=== PATIENT | female | born 1990 | race Asian ===

== ENCOUNTER 2017-04-15 12:43 | Outpatient (CLI) | payer BC ==
[2017-04-15] MEDS ORDERED: Iopamidol 300 61% 50 ML VIAL FS ONE (13:47)
--- NOTE | 2017-04-15 15:59 | RAD ---
PROCEDURE: HYSTEROSALPINGOGRAM: INDICATION: Infertility. Last menstrual period 7 days ago. The patient is 0 para 0. The patient has be en trying to conceive x 2 years. FINDINGS: Uterus is slightly deviated to the right. Uterine contour appears normal. No intrauterine filling d efect. Fallopian tubes are patent. Fimbria appear unremarkable. Contrast spill is seen from both f imbria. IMPRESSION: Unremarkable hysterosalpingogram. PROCEDURE NOTE: The procedure was discussed with the patient. The patient was placed in lithotomy position. A steri le speculum was placed. Cervix was cleaned with Betadine. The cervix is sounded to 3 cm. The inter nal os was closed and was difficult to penetrate with the sound. After opening the internal os, the HSG catheter was placed into the uterine cavity. Balloon was inflated. Water-soluble contrast was s lowly injected under fluoroscopic observation. Multiple images were obtained. The balloon was defla el and the lower uterine segment was opacified. There were no problems or complications. POS: [facility]
== END 2017-04-15 12:44 | disposition home or self-care (01) ==
LOC: RAD 12:43
PROVIDERS: ATTEND Obstetrics & Gynecology
DX: N97.1 Female infertility of tubal origin (principal)
CPT/HCPCS: 58340; 74740

== ENCOUNTER 2017-10-22 06:48 | Outpatient (CLI) | payer BC | END 2017-10-22 06:49 | disposition home or self-care (01) | LOC: BICULT 06:48 | PROVIDERS: ATTEND Internal Medicine Gastroenterology | DX: R10.10 Upper abdominal pain, unspecified (principal); R11.2 Nausea with vomiting, unspecified | CPT/HCPCS: 76705 ==

== ENCOUNTER 2018-03-18 12:39 | Inpatient (IN) | payer BC ==
[2018-04-12 21:54] VITALS: BMI 31.9
[2018-04-12] MEDS ORDERED: NS / Oxytocin 40 units/1000ml 1,000 ML IV PRN (21:57)
[2018-04-12] MEDS ORDERED: Butorphanol Tartrate 1 MG/ML VIAL SLOW IVP PRN (21:57)
[2018-04-12] MEDS ORDERED: Ibuprofen 800 MG TAB PO PRN (21:57)
[2018-04-12] MEDS ORDERED: HYDROcodone/Acetaminophen 5/325 mg Tablet PO PRN (21:57)
[2018-04-12] MEDS ORDERED: Acetaminophen 500 MG TAB PO PRN (21:57)
[2018-04-12] MEDS ORDERED: Lidocaine 1% (PF) 30 ML VIAL SC PRN (21:57)
[2018-04-12] MEDS ORDERED: Ondansetron PF 4 MG/2 ML Vial IVP PRN (21:57)
[2018-04-12] MEDS ORDERED: Promethazine HCl 25 MG/ML VIAL IM PRN (21:57)
[2018-04-12 22:40] LABS: Hemoglobin 11.3 g/dL (12.0-16.0); Mean Corpuscular HGB CONC 34.7 g/dL (32.0-36.0); Mean Corpuscular Hemoglobin 29.3 pg (27.0-31.0); Mean Corpuscular Volume 84.5 fL (78.0-98.0); Mean Platelet Volume 8.1 fL (7.4-10.4); Platelet Count 229 thou/uL (130-400); RBC Distribution Width 12.1 % (11.5-14.5); Red Blood Cell (RBC) Count 3.84 mill/uL (4.20-5.40); White Blood Cell (WBC) Count 10.8 thou/uL (4.8-10.8)
[2018-04-12] MEDS: Misoprostol 100 MCG TAB VAG SCH (22:50)
[2018-04-12] MEDS: Lactated Ringer's 1,000 ML IV SCH (22:50)
[2018-04-12 23:18] LABS: HBSAg Index 0.16 S/CO (0-0.99); Hep B Surf Ag Non-Reactive S/CO (NonReactive); Syphilis Antibody Nonreactive (Nonreactive); Syphilis Antibody Index 0.03 S/CO (<1.00 Non-Reactive)
[2018-04-13] MEDS: Misoprostol 100 MCG TAB VAG SCH ×4 (02:01→21:12)
[2018-04-13] MEDS: Lactated Ringer's 1,000 ML IV SCH ×3 (07:02→13:14)
[2018-04-13] MEDS: NS w/ Oxytocin 10 units 500 ML IV SCH ×2 (07:16)
[2018-04-13] MEDS ORDERED: Levothyroxine Sodium 25 MCG TAB PO SCH (08:00)
[2018-04-13] MEDS ORDERED: Fentanyl 4 mcg/Bup 0.1% Cadd 100 ML ONE (10:28)
[2018-04-13] MEDS ORDERED: Eucerin (Mineral Oil/Petrolatum,White) 30 gm Jar TOP PRN (11:04)
[2018-04-13] MEDS ORDERED: ePHEDrine/0.9% NaCl/PF SYRINGE 50 mg/10 ml SLOW IVP PRN (11:04)
[2018-04-13] MEDS ORDERED: Promethazine HCl 25 MG/ML VIAL IM PRN (11:04)
[2018-04-13] MEDS ORDERED: Ondansetron PF 4 MG/2 ML Vial IVP PRN (11:04)
[2018-04-13] MEDS ORDERED: Acetaminophen 325 MG TAB PO PRN (11:04)
[2018-04-13] MEDS ORDERED: diphenhydrAMINE 50 MG/ML VIAL IVP PRN (11:04)
[2018-04-13] MEDS ORDERED: Naloxone HCl 0.4 mg/ml Vial IVP PRN ×2 (11:04)
[2018-04-13] MEDS ORDERED: Lactated Ringer's 500 ML IV PRN (11:04)
[2018-04-13] MEDS ORDERED: Bupivacaine/Epinephrine 0.25% 30 ML VIAL ONE (11:11)
[2018-04-13] MEDS ORDERED: Communication Order-Pharmacy FS SCH (11:15)
[2018-04-13] MEDS ORDERED: Fentanyl 4 mcg/Bupivacaine 0.1% Cassette 100 ML EPIDURAL SCH (11:15)
--- NOTE | 2018-04-13 17:56 | PDOC.OPDEL ---
OB Operative/Delivery Note Delivery Dr/Surgeon: Be Pre-Delivery Diagnosis: elective induction Procedure/Post Delivery Dx: spontaneous vaginal delivery Weeks gestation: 40 Anesthesia: epidural - Findings A Sex: female - 1 min: 8 - 5 min: 9 - Additional Findings/Plan Placenta delivered: spontaneous Repaired Obstetrical Laceration: episiotomy (mid line --repsired with 2-0 chromic.) Compilations/Other Findings: loose nuchal cord x 1 with body cord. Post delivery plan: routine recovery
[2018-04-13] MEDS ORDERED: Adacel (T-DAP) 0.5 ML SYRINGE IM ONE (17:57)
[2018-04-13] MEDS ORDERED: diphenhydrAMINE 25 MG CAP PO PRN (17:57)
[2018-04-13] MEDS ORDERED: Misoprostol 200 MCG TAB VAG PRN (17:57)
[2018-04-13] MEDS ORDERED: Bisacodyl 10 MG SUPP PR PRN (17:57)
[2018-04-13] MEDS ORDERED: Milk Of Magnesia 30 ML UDCUP PO PRN (17:57)
[2018-04-13] MEDS ORDERED: Preparation H Ointment 28 GM TUBE PR PRN (17:57)
[2018-04-13] MEDS ORDERED: Benzocaine/Menthol 20-0.5% 60 ML CAN TOP PRN (17:57)
[2018-04-13] MEDS ORDERED: Lanolin Ointment 7 GM TUBE TOP PRN (17:57)
[2018-04-13] MEDS ORDERED: NS / Oxytocin 40 units/1000ml 1,000 ML IV SCH (18:00)
[2018-04-13] MEDS: Ibuprofen 800 MG TAB PO SCH (19:27)
[2018-04-13] MEDS ORDERED: Zolpidem Tartrate 5 MG TAB PO PRN (20:42)
[2018-04-13] MEDS ORDERED: traMADol HCl 50 MG TAB PO PRN (20:42)
[2018-04-13] MEDS: Docusate Calcium (SURFAK) 240 MG CAP PO SCH (21:33)
[2018-04-14] MEDS: traMADol HCl 50 MG TAB PO PRN ×2 (01:54→09:20)
[2018-04-14] MEDS: Ibuprofen 800 MG TAB PO SCH ×3 (05:24→21:44)
[2018-04-14] MEDS ORDERED: Levothyroxine Sodium 25 MCG TAB PO SCH (06:00)
--- NOTE | 2018-04-14 08:08 | PDOC.PP ---
Post Progress Note Post Day #: 1 PO intake tolerated: yes Flatus: yes Ambulation: yes Vital Signs (12 hours) Temp Pulse Resp BP Pulse Ox 04/14/18 04:30 98.6 F 115 H 18 121/73 04/14/18 00:00 98.5 F 103 H 18 111/58 L 04/13/18 21:20 98.1 F 100 16 113/60 04/13/18 20:30 97.8 F 101 H 16 114/60 97 Weight Weight 192 lb - Physical Examination Respiratory: non-labored breathing Abdominal: no distention, appropriately TTP Extremities: negative homans (B) Result Diagrams: 04/12/18 22:26 Additional Labs: Post Labs Blood Type A POSITIVE 04/12/18 22:26 Hep Bs Antigen Non-Reactive S/CO (NonReactive) 04/12/18 22:26 - Assessment/Plan post day 1-doing well. routine care. discharge in AM.
[2018-04-14] MEDS: Ferrous Sulfate 325 MG TAB PO SCH ×2 (09:19→17:23)
[2018-04-14] MEDS: Docusate Calcium (SURFAK) 240 MG CAP PO SCH ×2 (09:20→21:44)
[2018-04-15] MEDS: Ibuprofen 800 MG TAB PO SCH ×2 (06:18→14:00)
[2018-04-15 07:58] VITALS: BP 119/70; TEMP 98.4
--- NOTE | 2018-04-15 08:08 | PDOC.PP ---
Post Progress Note Post Day #: 1 PO intake tolerated: yes Flatus: yes Ambulation: yes Vital Signs (12 hours) Temp Pulse Resp BP Pulse Ox 04/15/18 07:58 98.4 F 106 H 20 119/70 98 04/14/18 20:40 98 04/14/18 20:22 97.6 F 100 20 119/71 98 Weight Weight 192 lb - Physical Examination Abdominal: no distention, appropriately TTP Extremities: negative homans (B) Result Diagrams: 04/12/18 22:26 Additional Labs: Post Labs Blood Type A POSITIVE 04/12/18 22:26 Hep Bs Antigen Non-Reactive S/CO (NonReactive) 04/12/18 22:26 - Assessment/Plan Post day 2. Doing well..D/c home. F/u in 6 weeks.
[2018-04-15] MEDS: Ferrous Sulfate 325 MG TAB PO SCH (08:54)
[2018-04-15] MEDS: Docusate Calcium (SURFAK) 240 MG CAP PO SCH (09:30)
== END 2018-04-15 14:30 | disposition home or self-care (01) | DRG 998 ==
LOC: EDBD → EDSTATUS 15:10 → L&D 04-12 21:11 → 3SW 04-13 20:34
PROVIDERS: ADMIT Obstetrics & Gynecology; ATTEND Obstetrics & Gynecology
PROC: 0W8NXZZ Division of Female Perineum, External Approach (ICD-10-PCS; principal; 2018-04-13)
PROC: 3E033VJ Introduction of Other Hormone into Peripheral Vein, Percutaneous Approach (ICD-10-PCS; 2018-04-13)
DX: O69.81X0 Labor and delivery complicated by cord around neck, without compression, not applicable or unspecified (principal); Z3A.40 40 weeks gestation of pregnancy; Z37.0 Single live birth; O99.284 Endocrine, nutritional and metabolic diseases complicating childbirth; E03.9 Hypothyroidism, unspecified
CPT/HCPCS: 36415; 51702; 85027; 86780; 86850; 86900; 86901; 87340; 90715; J2001; J2405

== ENCOUNTER 2021-05-22 01:29 | Emergency (ER) | payer BC ==
[2021-05-22] MEDS ORDERED: Acetaminophen 500 MG TAB ONE (02:12)
[2021-05-22] MEDS ORDERED: diphenhydrAMINE 12.5 MG/5 ML UDCUP ONE ×2 (02:12)
[2021-05-22] MEDS ORDERED: Metoclopramide HCl 10 MG/2 ML VIAL ONE (02:12)
[2021-05-22] MEDS ORDERED: diphenhydrAMINE 50 MG/ML VIAL ONE (02:13)
[2021-05-22] MEDS ORDERED: diphenhydrAMINE 25 MG CAP ONE (02:47)
== END 2021-05-22 03:19 | disposition home or self-care (01) ==
LOC: ERS 01:29
DX: R51.9 Headache, unspecified (principal); E03.9 Hypothyroidism, unspecified; Z79.899 Other long term (current) drug therapy
CPT/HCPCS: 96374; J1200; J2765; Q0163